=== PATIENT | female | born 1980 | race Caucasian/White ===

== ENCOUNTER 2018-01-14 12:19 | Inpatient (IN) | payer MEDICAID ==
[~2018-01-14] VITALS: Ht 167.6 cm; Wt 82.8 kg
[2018-01-14 14:15] VITALS: BP 137/93; PULSE 69; RESP 18; TEMP 98.3; O2SAT 99
[2018-01-14 18:44] VITALS: BP 140/92; PULSE 72; RESP 18; TEMP 97.6; O2SAT 98
[2018-01-15 06:08] VITALS: BP 128/86; PULSE 62; RESP 16; TEMP 97.7; O2SAT 100
[2018-01-15] MEDS ORDERED: FLUMAZENIL 0.5 MG/5 ML VIAL IV PUSH PRN (12:15)
[2018-01-15] MEDS ORDERED: LORazepam 2 MG/ML VIAL IM PRN (12:15)
[2018-01-15] MEDS ORDERED: ALUMINUM/MAGNESIUM/SIMETH 30 ML CUP PO PRN (12:15)
[2018-01-15] MEDS ORDERED: LORazepam 2 MG TAB PO PRN (12:15)
[2018-01-15] MEDS ORDERED: LORazepam 1 MG TAB PO PRN (12:15)
[2018-01-15] MEDS ORDERED: LORazepam 2 MG/ML VIAL IV PUSH PRN ×4 (12:15)
[2018-01-15] MEDS: LORazepam 1 MG TAB PO PRN ×2 (14:11→20:54)
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
[2018-01-15] MEDS ORDERED: LOSA100T PO (14:49)
--- NOTE | 2018-01-15 14:52 | PD.CONS ---
HPI Service [facility] Consult Requested By Dr. Renae Reason for Consult Hypertension Primary Care Physician Unknown Diagnoses: History of Present Illness Written by Kaur Guillen, acting as scribe for Dr. Chavez on 01/15/18 at 14:52. 37-year-old female with PMH significant for HTN, hemochromatosis, asthma, anxiety, depression, with past suicide attempt admitted to inpatient psychiatry department. Patient is under Pritchard act secondary to increase depression with suicidal ideation over the past several weeks. [facility] has been consulted to assist with management of hypertension. Patient is seen and examined after watching a movie and psych department. She denies any fevers, chills, nausea, vomiting, headache, shortness of breath, chest pain, eating and drinking without any issues. She does report some loose stools and thinks this might be related to her anxiety she reports a history of chronic constipation and has been unable to take Pepto-Bismol or any other medication secondary to history of hemochromatosis and severe constipation. She reports that her anxiety is ongoing and feels that the medications that she is receiving are not really helping. She reports that she is still very depressed especially given the fact that she has been unable to see her children and has been dealing with a lot of issues at home. One of those issues is her stepdaughter from her present who she states she is in the process of trying to evict from a trailer she owns. She is also very depressed because she has been unable to see her children who live with her [id number]. She is requesting medication to try and help with her anxiety. Review of Systems Except as stated in HPI: all other systems reviewed are Neg Past Family Social History Allergies: Coded Allergies: diphenhydramine (Verified Allergy, Intermediate, 01/14/18) MAKES HER HYPER topiramate (Verified Adverse Reaction, Severe, 01/14/18) Past Medical History Anxiety/depression Asthma Hypertension Hemochromatosis followed by (hematology) last seen in July and was told that her levels were stable. 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 Reported Medications Reported Meds & Active Scripts Active Reported Losartan (Losartan Potassium) 100 Mg Tab 100 Mg PO DAILY Active Ordered Medications Current Medications Medications (Trade) Dose Ordered Sig/Noemi Route Start Time Stop Time Status Last Admin (Tylenol) 650 mg Q4H PRN PO 01/14/18 21:30 (Ativan) 1 mg Q6H PRN PO 01/15/18 12:15 01/15/18 14:11 (Ativan Inj) 1 mg Q6H PRN IM 01/15/18 12:15 (Milk Of Magnesia Liq) 30 ml DAILY PRN PO 01/15/18 12:15 (Mag-Al Plus Susp Liq) 30 ml Q6H PRN PO 01/15/18 12:15 (Desyrel) 50 mg HS PRN PO 01/15/18 12:15 (Romazicon Inj) 0.2 mg Q1M PRN IV PUSH 01/15/18 12:15 (Ativan) 1 mg Q4H PRN PO 01/15/18 12:15 (Ativan Inj) 1 mg Q4H PRN IV PUSH 01/15/18 12:15 (Ativan) 2 mg Q2H PRN PO 01/15/18 12:15 (Ativan Inj) 2 mg Q2H PRN IV PUSH 01/15/18 12:15 (Ativan Inj) 2 mg Q1H PRN IV PUSH 01/15/18 12:15 (Ativan Inj) 2 mg Q15M PRN IV PUSH 01/15/18 12:15 Family History Adopted but does know some family history Father: [place] Mother: Diabetes Grandmother: at 47 from [place] also had aneurysm Grandfather: at 63 due to cancer Social History Tobacco use: 1.2 PPD for the past 2 years Alcohol use: Socially and when she is stressed Illicit drug use: Denies , 3 children Physical Exam Vital Signs Vital Signs Date Time Temp Pulse Resp B/P (MAP) Pulse Ox O2 Delivery O2 Flow Rate FiO2 01/15/18 06:08 97.7 62 16 128/86 (100) 100 01/14/18 18:44 97.6 72 18 140/92 (108) 98 Physical Exam GENERAL: This is a well-nourished, well-developed patient, in no acute distress but becomes tearful when talking about family situation. SKIN: No rashes, ecchymoses or lesions. Cool and dry. HEAD: Atraumatic. Normocephalic. EYES: Pupils equal round and reactive. No scleral icterus. No injection or drainage. ENT: Nose without bleeding, purulent drainage. Airway patent. NECK: Trachea midline. No JVD. Supple. CARDIOVASCULAR: Regular rate and rhythm without murmurs, gallops, or rubs. RESPIRATORY: Clear to auscultation. Breath sounds equal bilaterally. No wheezes , rales, or rhonchi. GASTROINTESTINAL: Abdomen soft, non-tender, nondistended. No guarding. MUSCULOSKELETAL: Extremities without clubbing, cyanosis, or edema. No joint tenderness, effusion, or edema noted. NEUROLOGICAL: Awake and alert. Cranial nerves II through XII intact. Motor and sensory grossly within normal limits. Five out of 5 muscle strength in all muscle groups. Normal speech. Assessment and Plan Assessment and Plan 37-year-old female with PMH significant for HTN, anxiety, depression, with past suicide attempt admitted to inpatient psychiatry department under Pritchard act secondary to increase depression with suicidal ideation over the past several weeks. [facility] has been consulted to assist with management of hypertension. Anxiety/depression - Treatment per psychiatry Hypertension - Resume patient's Losartan 100mg daily - Continue following BP trend and adjust meds as needed Asthma, not exacerbated -Breathing treatments as needed. Hemochromatosis - Check CBC DVT prophylaxis-ambulating. Discussed with nurse. Thank you for this consultation will continue to follow along. This note was transcribed by MAIKOL Lawrence . I, Dr. Chiquis Chavez personally performed the history, physical exam, and medical decision making; and confirmed the accuracy of the information in the transcribed note. Authenticated by Dr. Chiquis Chavez on 01/15/18 at 14:52. Kaur Guillen Jan 15, 2018 14:52 Chiquis Chavez MD Jan 15, 2018 17:59
[2018-01-15 16:45] VITALS: BP 138/88; PULSE 66; RESP 18; TEMP 98; O2SAT 100
[2018-01-15] MEDS ORDERED: RESP: ALBUTEROL 2.5 MG/IPRATROPIUM 0.5 MG NEB (PRN) NEB (16:45)
[2018-01-15 18:46] LABS: AUTOMATED NEUTROPHIL # 2.3 TH/MM3 (1.8-7.7); BASOPHIL % 0.4 % (0.0-2.0); EOSINOPHIL # 0.1 TH/MM3 (0-0.4); EOSINOPHIL % 2.1 % (0.0-4.0); HEMATOCRIT 38.5 % (35.0-46.0); HEMOGLOBIN 13.6 GM/DL (11.6-15.3); LYMPH % 35.7 % (9.0-44.0); LYMPHOCYTE # 1.5 TH/MM3 (1.0-4.8); MEAN CELL VOLUME 99.3 FL (80.0-100.0); MEAN CORPUSCULAR HGB CONC 35.3 % (32.0-36.0); MEAN PLATELET VOLUME 7.5 FL (7.0-11.0); MONO % 8.1 % (0.0-8.0); MONOCYTE # 0.3 TH/MM3 (0-0.9); NEUT % 53.7 % (16.0-70.0); PLATELET COUNT 174 TH/MM3 (150-450); RED BLOOD COUNT 3.87 MIL/MM3 (4.00-5.30); RED CELL DISTRIBUTION WIDTH 12.6 % (11.6-17.2); WHITE BLOOD COUNT 4.2 TH/MM3 (4.0-11.0)
[2018-01-15] MEDS: traZODone HCL 50 MG TAB PO PRN (20:54)
[2018-01-16] MEDS: LORazepam 1 MG TAB PO PRN ×3 (05:51→18:18)
[2018-01-16 05:59] VITALS: BP 109/88; PULSE 62; RESP 16; TEMP 97.6; O2SAT 99
[2018-01-16 08:40] LABS: BICARBONATE 26.8 MEQ/L (21.0-32.0); BLOOD UREA NITROGEN 7 MG/DL (7-18); CALCIUM 8.5 MG/DL (8.5-10.1); CHLORIDE 102 MEQ/L (98-107); CREATININE 0.49 MG/DL (0.50-1.00); GLOMERULAR FILTRATION RATE 141 ML/MIN (>89); GLUCOSE,RANDOM 93 MG/DL (74-106); SODIUM (NA) 137 MEQ/L (136-145)
[2018-01-16 08:42] LABS: CHOLESTEROL 254 MG/DL (120-200); TRIGLYCERIDES 216 MG/DL (42-150)
[2018-01-16 08:50] LABS: CHOLESTEROL/ HDL RATIO 4.05 RATIO; HDL CHOLESTEROL 62.6 MG/DL (40.0-60.0); LDL CHOLESTEROL 148 MG/DL (0-99)
[2018-01-16] MEDS: LOSARTAN 50 MG TAB PO SCH (09:00)
[2018-01-16 16:13] LABS: HEMOGLOBIN A1C 5.2 % (4.3-6.0)
--- NOTE | 2018-01-16 16:45 | HHI.PR ---
Subjective Remarks Patient seen and examined today. Complaints of vaginal discharge, "fishy smelling, foul", filmlike white colored discharge. Patient states she can smell it every time she goes to the bathroom and voids or whenever she takes off her pants states he was overwhelming her. Denies any current sexual encounter. States monogamous with . Reports that she had this before and was treated for bacterial infection. Denies any fevers, chills, nausea, vomiting, diarrhea. Objective Vitals Vital Signs Date Time Temp Pulse Resp B/P (MAP) Pulse Ox O2 Delivery O2 Flow Rate FiO2 01/16/18 05:59 97.6 62 16 109/88 (95) 99 I/O 01/15/18 01/15/18 01/15/18 01/16/18 01/16/18 01/16/18 07:00 15:00 23:00 07:00 15:00 23:00 Intake Total 240 ml Balance 240 ml Intake Oral 240 ml Result Diagram: 01/15/18 1624 01/16/18 0640 Objective Remarks GENERAL: This is a well-nourished, well-developed patient, in no apparent distress. SKIN: Warm and dry HEENT: Normocephalic. Pupils equal round and reactive. Nose without bleeding. Airway patent. NECK: Trachea midline. CARDIOVASCULAR: Regular rate and rhythm without murmurs, gallops, or rubs. RESPIRATORY: Clear to auscultation. Breath sounds equal bilaterally. No wheezes , rales, or rhonchi. GASTROINTESTINAL: Abdomen soft, non-tender, nondistended. Bowel Sounds normoactive x4. : Malodorous smell patient took off her pants. MUSCULOSKELETAL: Extremities without clubbing, cyanosis, or edema. NEUROLOGICAL: Awake and alert. Oriented to time, place, person. No focal neuro deficit. Moves all extremities. Normal speech. A/P Problem List: (1) Bacterial vaginosis ICD Code: N76.0 - Acute vaginitis; B96.89 - Other specified bacterial agents as the cause of diseases classified elsewhere Status: Acute (2) Adjustment disorder with depressed mood ICD Code: F43.21 - Adjustment disorder with depressed mood Assessment and Plan 37-year-old female with PMH significant for HTN, anxiety, depression, with past suicide attempt admitted to inpatient psychiatry department under Pritchard act secondary to increase depression with suicidal ideation over the past several weeks. [facility] has been consulted to assist with management of hypertension. Bacterial vaginosis - Start Flagyl 500 mg twice a day 7 days Anxiety/depression - Treatment per psychiatry Hypertension - Resume patient's Losartan 100mg daily - Continue following BP trend and adjust meds as needed Asthma, not exacerbated - Breathing treatments as needed. Hemochromatosis - Within normal CBC DVT prophylaxis-ambulating. Dirk Gerardo Jan 16, 2018 16:45
[2018-01-16 17:29] VITALS: BP 146/86; PULSE 66; RESP 16; TEMP 98; O2SAT 98
--- NOTE | 2018-01-16 17:38 | HHI.PYPN ---
Subjective Remarks Patient seen for follow-up, chart reviewed. Patient was found participating in group and they will not be, cooperative energy today. Patient states that she continues to depressed along with intermittent crying spells when thinking about her psychosocial stressors. Patient was attempting to go to groups which she feels has been therapeutic. Patient had some difficulty with sleep last evening along with ruminations over her stressors. Patient did not receive Zoloft yesterday as discussed with report writer. Patient denies any perceptual disturbances or delusions at this time. Review of Systems Genitourinary: COMPLAINS OF: Vaginal discharge Except as stated in HPI: all other systems reviewed are Neg Mental Status Examination Appearance: Dirty Consciousness: Alert Orientation: Person, Place, Date/Time Motor Activity: Normal gait Speech: Unremarkable Language: Adequate Fund of Knowledge: Inadequate Attention and Concentration: Adequate Memory: Unremarkable Mood: Sad, Anxious Affect: Sad, Anxious, Other (Tearful at times) Thought Process & Associations: Linear Thought Content: Appropriate Hallucination Type: None Delusion Type: None Suicidal Ideation: Yes Suicidal Plan: No Suicidal Intention: No Homicidal Ideation: No Homicidal Plan: No Homicidal Intention: No Insight: Fair Judgment: Impulsive Results Labs Labs reviewed Test 01/16/18 06:40 Blood Urea Nitrogen 7 MG/DL Creatinine 0.49 MG/DL Random Glucose 93 MG/DL Calcium Level 8.5 MG/DL Sodium Level 137 MEQ/L Potassium Level 3.7 MEQ/L Chloride Level 102 MEQ/L Carbon Dioxide Level 26.8 MEQ/L Anion Gap 8 MEQ/L Estimat Glomerular Filtration Rate 141 ML/MIN Triglycerides Level 216 MG/DL Cholesterol Level 254 MG/DL LDL Cholesterol 148 MG/DL HDL Cholesterol 62.6 MG/DL Cholesterol/HDL Ratio 4.05 RATIO Thyroid Stimulating Hormone 3rd Gen 2.670 uIU/ML Vitals/IOs Vital Signs Date Time Temp Pulse Resp B/P (MAP) Pulse Ox O2 Delivery O2 Flow Rate FiO2 01/16/18 17:29 98.0 66 16 146/86 (106) 98 Intake and Output 01/16/18 01/16/18 01/17/18 08:00 16:00 00:00 Intake Total 240 ml 240 ml Balance 240 ml 240 ml Assessment & Plan Problem List: (1) Adjustment disorder with depressed mood ICD Codes: F43.21 - Adjustment disorder with depressed mood Assessment & Plan Patient at this time continues to report feeling depressed along with intermittent suicidal ideations, continue with episodes of crying spells during moments when she calls her stressors. Patient did not receive her initial dose of Zoloft yesterday as there was entry there order system. Patient will commence Zoloft 50 mg p.o. daily for depression today, continue rest of medications. Continue monitoring mood and behavior. Brief supportive psychotherapy provided. I spoke with [employer] SALESPERSON from hospitalist consult team regarding recent complaints of vaginal discharge. Discharge planning in progress. Justification for Cont. Inpt. At risk for further decompensation at lower level of care Discharge Planning Neck to her residence once psychiatrically stable. Lv Malin MD Jan 16, 2018 17:38
[2018-01-16 18:06] LABS: ALBUMIN 3.6 GM/DL (3.4-5.0); DIRECT BILIRUBIN ADULT 0.2 MG/DL (0.0-0.2)
[2018-01-16 18:08] LABS: INDIRECT BILIRUBIN 0.1 MG/DL (0.0-0.8); TOTAL BILIRUBIN ADULT 0.3 MG/DL (0.2-1.0); TOTAL PROTEIN 7.1 GM/DL (6.4-8.2)
[2018-01-16] MEDS: SERTRALINE HCL 50 MG TAB PO SCH (18:18)
[2018-01-16] MEDS ORDERED: hydrOXYzine HCL 50 MG TAB PO PRN (20:45)
[2018-01-16] MEDS: metroNIDAZOLE 500 MG TAB PO SCH (21:09)
[2018-01-16] MEDS: traZODone HCL 50 MG TAB PO PRN (22:42)
[2018-01-17] MEDS: LORazepam 1 MG TAB PO PRN ×4 (00:15→22:54)
[2018-01-17 06:12] VITALS: BP 106/58; PULSE 65; RESP 16; TEMP 98.2; O2SAT 95
[2018-01-17] MEDS: ATORVASTATIN 10 MG TAB PO SCH (09:29)
[2018-01-17] MEDS: LOSARTAN 50 MG TAB PO SCH (09:30)
[2018-01-17] MEDS: SERTRALINE HCL 50 MG TAB PO SCH (09:30)
[2018-01-17] MEDS: metroNIDAZOLE 500 MG TAB PO SCH ×2 (09:30→22:11)
--- NOTE | 2018-01-17 12:28 | HHI.PYPN ---
Subjective Remarks Patient seen and examined with nurse in coverage for Dr. Malin. Chart reviewed. Case discussed with nursing staff. On my examination today, the patient complains of anxiety and difficulty sleeping. She says that her sleep is disrupted by anxious rumination. Mood remains depressed. She denies any suicidal or homicidal ideation. She denies side effects from Zoloft but is reluctant to use hydroxyzine as she notes that she has had a paradoxical response to Benadryl in the past. She does have Ativan as needed for anxiety. Review of Systems Except as stated in HPI: all other systems reviewed are Neg Mental Status Examination Appearance: Appropriate Consciousness: Alert Orientation: x4 Motor Activity: Normal gait, Other (no motor abnormalities noted) Speech: Unremarkable Language: Adequate Fund of Knowledge: Adequate Attention and Concentration: Adequate Memory: Unremarkable Mood: Anxious, Other (depressed) Affect: Other (consistent with stated mood) Thought Process & Associations: Intact, Logical, Goal directed Thought Content: Appropriate Hallucination Type: None Delusion Type: None Suicidal Ideation: No Suicidal Plan: No Suicidal Intention: No Homicidal Ideation: No Homicidal Plan: No Homicidal Intention: No Insight: Fair Judgment: Impulsive Results Labs Labs reviewed. I do not see a bHCG on file. Vitals/IOs Vital Signs Date Time Temp Pulse Resp B/P (MAP) Pulse Ox O2 Delivery O2 Flow Rate FiO2 01/17/18 06:12 98.2 65 16 106/58 (74) 95 Intake and Output 01/17/18 01/17/18 01/18/18 08:00 16:00 00:00 Intake Total 240 ml 240 ml Balance 240 ml 240 ml Assessment & Plan Problem List: (1) Adjustment disorder with depressed mood ICD Codes: F43.21 - Adjustment disorder with depressed mood Assessment & Plan Titrate trazodone to 100mg HS p.r.n. insomnia. Check bHCG. Hold Atarax and continue Ativan p.r.n.. Continue to monitor on inpatient unit. Continue other meds and care as ordered. Justification for Cont. Inpt. Med changes. Risk for decompensation in less restrictive environment. Discharge Planning Per Dr. Malin. Manfred Gutierrez MD Jan 17, 2018 12:28
[2018-01-17] MEDS: MAGNESIUM HYDROXIDE SUSP 30 ML CUP PO PRN (14:57)
[2018-01-17 18:00] VITALS: BP 147/83; PULSE 78; RESP 16; TEMP 97.8; O2SAT 98
[2018-01-17] MEDS: traZODone HCL 100 MG TAB PO PRN (22:56)
--- NOTE | 2018-01-18 01:34 | EKG ---
Date Performed: 01/16/2018 Time Performed: 13:20:16 PTAGE: 37 years EKG: Sinus rhythm POSSIBLE RIGHT VENTRICULAR CONDUCTION DELAY TALL T-WAVES, SUGGESTS HYPERKALEMIA PROLONGED QT INTERVA L ABNORMAL ECG NO PREVIOUS TRACING DOCTOR: Monalisa Young Interpretating Date/Time 01/18/2018 01:32:14
[2018-01-18] MEDS: ACETAMINOPHEN 325 MG TAB PO PRN (06:11)
[2018-01-18] MEDS: LOSARTAN 50 MG TAB PO SCH (09:06)
[2018-01-18] MEDS: SERTRALINE HCL 50 MG TAB PO SCH (09:06)
[2018-01-18] MEDS: metroNIDAZOLE 500 MG TAB PO SCH ×2 (09:06→20:11)
[2018-01-18] MEDS: MAGNESIUM HYDROXIDE SUSP 30 ML CUP PO PRN (09:07)
[2018-01-18] MEDS ORDERED: MAGNESIUM HYDROXIDE SUSP 30 ML CUP PO PRN (10:30)
[2018-01-18] MEDS ORDERED: BISACODYL 10 MG SUPP RECTAL PRN (10:30)
[2018-01-18] MEDS ORDERED: POLYETHYLENE GLYCOL 17 GM PKG PO ONE (10:30)
--- NOTE | 2018-01-18 10:31 | HHI.PR ---
Subjective Remarks Follow-up for bacterial vaginosis No vaginal discharge, fishy odor disappearing, no vaginal itchiness. However, patient has been constipated, no improvement with milk of magnesia. Mildly bloated, no abdominal pain, nausea or vomiting. Objective Vitals Vital Signs Date Time Temp Pulse Resp B/P (MAP) Pulse Ox O2 Delivery O2 Flow Rate FiO2 01/17/18 18:00 97.8 78 16 147/83 (104) 98 I/O 01/17/18 01/17/18 01/17/18 01/18/18 01/18/18 01/18/18 07:00 15:00 23:00 07:00 15:00 23:00 Intake Total 480 ml Balance 480 ml Intake Oral 480 ml Result Diagram: 01/15/18 1624 01/16/18 0640 Objective Remarks GENERAL: This is a well-nourished, well-developed patient, in no apparent distress. CARDIOVASCULAR: Regular rate and rhythm without murmurs, gallops, or rubs. RESPIRATORY: Clear to auscultation. Breath sounds equal bilaterally. No wheezes , rales, or rhonchi. GASTROINTESTINAL: Abdomen soft, non-tender, nondistended. Bowel Sounds normoactive x4. MUSCULOSKELETAL: Extremities without clubbing, cyanosis, or edema. NEUROLOGICAL: Awake and alert. Oriented to time, place, person. No focal neuro deficit. Moves all extremities. Normal speech. A/P Problem List: (1) Bacterial vaginosis ICD Code: N76.0 - Acute vaginitis; B96.89 - Other specified bacterial agents as the cause of diseases classified elsewhere Status: Acute (2) Adjustment disorder with depressed mood ICD Code: F43.21 - Adjustment disorder with depressed mood Assessment and Plan 37-year-old female with PMH significant for HTN, anxiety, depression, with past suicide attempt admitted to inpatient psychiatry department under [facility] secondary to increase depression with suicidal ideation over the past several weeks. [facility] has been consulted to assist with management of hypertension. Bacterial vaginosis -Finish Flagyl 500 mg twice a day 7 days on 01/23/2018 Anxiety/depression - Treatment per psychiatry Hypertension -Continue losartan 100mg daily, allegedly, patient is also on hydrochlorothiazide 25 mg daily and Norvasc 5 mg daily. Blood pressure uncontrolled, restart hydrochlorothiazide at 12.5 mg daily. - Continue following BP trend and adjust meds as needed Asthma, not exacerbated - Breathing treatments as needed. Hemochromatosis - Within normal CBC Constipation-we will put in constipation protocol, will give glycopyrrolate once now. DVT prophylaxis-ambulating. Yohannes Wilson MD Jan 18, 2018 10:31
[2018-01-18] MEDS: traZODone HCL 100 MG TAB PO PRN (10:47)
[2018-01-18] MEDS: HYDROCHLOROTHIAZIDE 12.5 MG CAP PO SCH (10:47)
[2018-01-18] MEDS: ATORVASTATIN 10 MG TAB PO SCH (10:52)
[2018-01-18] MEDS: LORazepam 1 MG TAB PO PRN ×2 (13:41→20:11)
--- NOTE | 2018-01-18 13:52 | HHI.PYPN ---
Subjective Remarks Patient was seen and case discussed with nursing. Patient continues to complain of insomnia 3-1/2 hours per night. She is crying in the mornings per nursing. She was close to tears during our interview. She is open to medication for anxiety is not controlled. We discussed gabapentin. Patient describes various stressors before admission. She does deny suicidal or homicidal ideation intent or plan. Behaving well on the unit Mental Status Examination Appearance: Appropriate Consciousness: Alert Orientation: x4 Motor Activity: Normal gait, Other (no motor abnormalities noted) Speech: Unremarkable Language: Adequate Fund of Knowledge: Adequate Attention and Concentration: Adequate Memory: Unremarkable Mood: Anxious, Other (depressed) Affect: Other (consistent with stated mood) Thought Process & Associations: Intact, Logical, Goal directed Thought Content: Appropriate Hallucination Type: None Delusion Type: None Suicidal Ideation: No Suicidal Plan: No Suicidal Intention: No Homicidal Ideation: No Homicidal Plan: No Homicidal Intention: No Insight: Fair Judgment: Impulsive Results Vitals/IOs Vital Signs Date Time Temp Pulse Resp B/P (MAP) Pulse Ox O2 Delivery O2 Flow Rate FiO2 01/18/18 07:15 12 01/17/18 18:00 97.8 78 147/83 (104) 98 Assessment & Plan Problem List: (1) Adjustment disorder with depressed mood ICD Codes: F43.21 - Adjustment disorder with depressed mood Assessment & Plan Add gabapentin 100 mg by mouth 3 times a day, increase trazodone to 150 mg by mouth daily at bedtime Justification for Cont. Inpt. Patient would decompensate in a less restrictive setting Nilesh Nettles DO Jan 18, 2018 13:52
[2018-01-18] MEDS: LACTULOSE SYRUP 20 GM/30 ML CUP PO PRN (15:49)
[2018-01-18] MEDS: GABAPENTIN 100 MG CAP PO SCH ×2 (15:49→17:57)
[2018-01-18] MEDS ORDERED: PADIMATE (CHAPSTICK) 4.5 GM TUBE TOPICAL PRN (17:30)
[2018-01-18 18:36] VITALS: BP 145/83; PULSE 75; RESP 18; TEMP 98.5; O2SAT 98
[2018-01-18] MEDS: DOCUSATE SODIUM 50 MG/SENNA 8.6 MG TAB PO SCH (20:11)
[2018-01-19 05:42] VITALS: BP 114/58; PULSE 70; RESP 16; TEMP 98; O2SAT 97
[2018-01-19] MEDS: LOSARTAN 50 MG TAB PO SCH (09:00)
[2018-01-19] MEDS: DOCUSATE SODIUM 50 MG/SENNA 8.6 MG TAB PO SCH ×2 (10:39→21:00)
[2018-01-19] MEDS: GABAPENTIN 100 MG CAP PO SCH ×2 (10:40→12:16)
[2018-01-19] MEDS: ATORVASTATIN 10 MG TAB PO SCH (10:40)
[2018-01-19] MEDS: SERTRALINE HCL 50 MG TAB PO SCH (10:40)
[2018-01-19] MEDS: HYDROCHLOROTHIAZIDE 12.5 MG CAP PO SCH (10:40)
[2018-01-19] MEDS: metroNIDAZOLE 500 MG TAB PO SCH ×2 (10:40→21:00)
[2018-01-19] MEDS: LACTULOSE SYRUP 20 GM/30 ML CUP PO PRN (10:41)
[2018-01-19] MEDS: ACETAMINOPHEN 325 MG TAB PO PRN (12:16)
--- NOTE | 2018-01-19 12:24 | HHI.PYPN ---
Subjective Remarks Patient was seen and case discussed with nursing. Patient is brighter more interactive during the interview today. However she admits to getting tearful and upset when talking about her kids. Her "panic attacks" have improved today with addition of gabapentin. She is asking about a higher dose. Patient also notices a pain in her right wrist for a week. She does not remember any trauma Mental Status Examination Appearance: Appropriate Consciousness: Alert Orientation: x4 Motor Activity: Normal gait, Other (no motor abnormalities noted) Speech: Unremarkable Language: Adequate Fund of Knowledge: Adequate Attention and Concentration: Adequate Memory: Unremarkable Mood: Anxious, Other (depressed) Affect: Other (consistent with stated mood) Thought Process & Associations: Intact, Logical, Goal directed Thought Content: Appropriate Hallucination Type: None Delusion Type: None Suicidal Ideation: No Suicidal Plan: No Suicidal Intention: No Homicidal Ideation: No Homicidal Plan: No Homicidal Intention: No Insight: Fair Judgment: Impulsive Results Vitals/IOs Vital Signs Date Time Temp Pulse Resp B/P (MAP) Pulse Ox O2 Delivery O2 Flow Rate FiO2 01/19/18 05:42 98.0 70 16 114/58 (76) 97 Intake and Output 01/19/18 01/19/18 01/20/18 08:00 16:00 00:00 Intake Total 240 ml Balance 240 ml Assessment & Plan Problem List: (1) Adjustment disorder with depressed mood ICD Codes: F43.21 - Adjustment disorder with depressed mood Assessment & Plan Add Motrin for pain, medical consult for this, increase gabapentin to 300 mg by mouth 3 times a day Justification for Cont. Inpt. Patient will decompensate in a less restrictive setting Nilesh Nettles DO Jan 19, 2018 12:24
[2018-01-19] MEDS: GABAPENTIN 300 MG CAP PO SCH ×2 (13:00→17:00)
--- NOTE | 2018-01-19 13:55 | HHI.PR ---
Subjective Remarks Follow-up visit bacterial vaginosis, constipation. Patient seen and examined today. Reports she is doing well. States that vaginosis has improved, has not noticed any discharge or odor. Patient complaints of constipation. States she went to the bathroom today but she thinks it it is not regular. States she has been drinking water but continues to have constipation. Patient also reports right wrist and forearm pain, aggravated by playing basketball. States she has the pain in prior months before coming to the hospital and knows that there is no fracture and it but she thinks it's a little bit swollen from playing basketball and laying on it overnight. Requesting for topical cream analgesia. Denies SOB/ dyspnea. Denies chest pain, palpitations, headaches, dizziness. Denies fevers, chills, n/v/d. Denies hematuria, dysuria. Objective Vitals Vital Signs Date Time Temp Pulse Resp B/P (MAP) Pulse Ox O2 Delivery O2 Flow Rate FiO2 01/19/18 05:42 98.0 70 16 114/58 (76) 97 01/18/18 18:36 98.5 75 18 145/83 (103) 98 I/O 01/18/18 01/18/18 01/18/18 01/19/18 01/19/18 01/19/18 07:00 15:00 23:00 07:00 15:00 23:00 Intake Total 240 ml 480 ml Balance 240 ml 480 ml Intake Oral 240 ml 480 ml Result Diagram: 01/15/18 1624 01/16/18 0640 Objective Remarks GENERAL: This is a well-nourished, well-developed patient, in no apparent distress. SKIN: Warm and dry HEENT: Normocephalic. Pupils equal round and reactive. Nose without bleeding. Airway patent. NECK: Trachea midline. CARDIOVASCULAR: Regular rate and rhythm without murmurs, gallops, or rubs. RESPIRATORY: Clear to auscultation. Breath sounds equal bilaterally. No wheezes , rales, or rhonchi. GASTROINTESTINAL: Abdomen soft, non-tender, nondistended. Bowel Sounds normoactive x4. MUSCULOSKELETAL: Extremities without clubbing, cyanosis, or edema. Right forearm trace edema, no erythema. NEUROLOGICAL: Awake and alert. Oriented to time, place, person. No focal neuro deficit. Moves all extremities. Normal speech. A/P Problem List: (1) Bacterial vaginosis ICD Code: N76.0 - Acute vaginitis; B96.89 - Other specified bacterial agents as the cause of diseases classified elsewhere Status: Acute (2) Adjustment disorder with depressed mood ICD Code: F43.21 - Adjustment disorder with depressed mood Assessment and Plan Patrient is a 37-year-old female with PMH significant for HTN, anxiety, depression, with past suicide attempt admitted to inpatient psychiatry department under [facility] secondary to increase depression with suicidal ideation over the past several weeks. [facility] has been consulted to assist with management of hypertension. Bacterial vaginosis - Flagyl 500 mg twice a day 7 days Anxiety/depression - Treatment per psychiatry Hypertension - Resume patient's Losartan 100mg daily - Continue following BP trend and adjust meds as needed Asthma, not exacerbated - Breathing treatments as needed. Hemochromatosis - Within normal CBC Constipation - MiraLAX and lactulose daily - DC lactulose and patient is having regular bowel movements Right forearm pain, sprain - Sprained forearm - Unable to use Richard wrap secondary to suicidal risk at the unit - [facility] as needed DVT prophylaxis-ambulating. Stable from Hospitalist standpoint. We will sign off. Reconsult as needed. Dirk Gerardo Jan 19, 2018 13:55
[2018-01-19 18:56] VITALS: BP 165/83; PULSE 76; RESP 16; TEMP 98.3; O2SAT 96
[2018-01-19] MEDS: LORazepam 1 MG TAB PO PRN (21:31)
[2018-01-19] MEDS: MENTHOL/METHYL SALICYLATE OINT 30 GM TUBE TOPICAL PRN (21:36)
[2018-01-20] MEDS: traZODone HCL 50 MG TAB PO PRN (00:01)
[2018-01-20 05:47] VITALS: BP 120/62; PULSE 72; RESP 16; TEMP 98; O2SAT 97
[2018-01-20] MEDS: metroNIDAZOLE 500 MG TAB PO SCH ×2 (09:00→21:48)
[2018-01-20] MEDS: DOCUSATE SODIUM 50 MG/SENNA 8.6 MG TAB PO SCH ×2 (09:00→21:48)
[2018-01-20] MEDS: ATORVASTATIN 10 MG TAB PO SCH (09:00)
[2018-01-20] MEDS: SERTRALINE HCL 50 MG TAB PO SCH (09:00)
[2018-01-20] MEDS: GABAPENTIN 300 MG CAP PO SCH ×3 (09:00→17:57)
[2018-01-20] MEDS: HYDROCHLOROTHIAZIDE 12.5 MG CAP PO SCH (09:00)
[2018-01-20] MEDS: LOSARTAN 50 MG TAB PO SCH (09:00)
[2018-01-20] MEDS: POLYETHYLENE GLYCOL 17 GM PKG PO SCH ×2 (09:00→12:02)
[2018-01-20] MEDS: LACTULOSE SYRUP 20 GM/30 ML CUP PO SCH (09:00)
--- NOTE | 2018-01-20 11:46 | PD.TTN ---
Patient Problems 1. Discharge planning 2. Medication compliance 3. Knowledge deficit 4. Lack of coping skills Progress Toward Goals Provider Present: Dr. Jacob Malin Provider Input: 01/19/19 patient has been very tearful and depressed asking to be better before going home, will assess how her weekend has faired Psychiatric Counselors Present: Shwetha Taylor LCSW Psych Therapist Input: 01/19/19Saturday patient engaged well and participated in groups and appeared with better/improved affect, she will return home to her family once stable Group Spec/RT/OT/MUNOZ Present: Kashmir Bermudez OT Group Spec/RT/OT/MUNOZ Input: 01/19/19 patient attends groups and is appropriate Shwetha Taylor LCSW Jan 20, 2018 11:46
[2018-01-20] MEDS: MENTHOL/METHYL SALICYLATE OINT 30 GM TUBE TOPICAL PRN ×2 (12:02→21:56)
[2018-01-20 18:11] VITALS: BP 123/61; PULSE 76; RESP 16; TEMP 98.5; O2SAT 98
--- NOTE | 2018-01-20 18:43 | HHI.PYPN ---
Subjective Remarks Patient seen for follow-up, chart reviewed. Discussion nursing staff reported the patient continued to be noted to be tearful at times, and attending groups. Patient was found in the room notably, cooperative today. Patient reports that she is having less anxiety with the addition of gabapentin in her regimen but continues to report feeling depressed stating that he still 8 or 9 out of 10 (10 being its worst) continue to be noted to be tearful throughout the interview when addressing her stressors at home. She states that she is sleeping somewhat better and continues to look forward to improvement so that she can return back to her family. Patient reports trying to attend groups while on the unit as well. Patient denies any suicide ideation at this time reports continuing to have intermittent SI. Review of Systems Except as stated in HPI: all other systems reviewed are Neg Mental Status Examination Appearance: Appropriate Consciousness: Alert Orientation: x4 Motor Activity: Normal gait, Other (no motor abnormalities noted) Speech: Unremarkable Language: Adequate Fund of Knowledge: Adequate Attention and Concentration: Adequate Memory: Unremarkable Mood: Sad, Anxious, Other (Tearful at times) Affect: Sad, Anxious Thought Process & Associations: Intact, Logical, Goal directed Thought Content: Appropriate Hallucination Type: None Delusion Type: None Suicidal Ideation: No Suicidal Plan: No Suicidal Intention: No Homicidal Ideation: No Homicidal Plan: No Homicidal Intention: No Insight: Fair Judgment: Impulsive Results Vitals/IOs Vital Signs Date Time Temp Pulse Resp B/P (MAP) Pulse Ox O2 Delivery O2 Flow Rate FiO2 01/20/18 18:11 98.5 76 16 123/61 (81) 98 Intake and Output 01/20/18 01/20/18 01/21/18 08:00 16:00 00:00 Intake Total 240 ml Balance 240 ml Assessment & Plan Problem List: (1) Adjustment disorder with depressed mood ICD Codes: F43.21 - Adjustment disorder with depressed mood Assessment & Plan Patient at the time continues to report having significant depressed mood, continue be noted to be dysphoric and tearful throughout interview when speaking about her stressors concerning her family along with intermittent suicide ideations. We will increase sertraline to 100 mg p.o. daily for depression, continue rest of medications. Continue to monitor mood and behavior. Discharge planning in progress. Justification for Cont. Inpt. At risk for further decompensation at lower level of care. Discharge Planning Patient to return back to her residence once psychiatrically stable. Lv Malin MD Jan 20, 2018 18:43
[2018-01-20] MEDS: ACETAMINOPHEN 325 MG TAB PO PRN (20:23)
[2018-01-20] MEDS: SENNOSIDES 8.6 MG TAB PO PRN (21:56)
[2018-01-20] MEDS: LORazepam 1 MG TAB PO PRN (21:56)
[2018-01-21] MEDS: traZODone HCL 50 MG TAB PO PRN ×2 (00:09→22:00)
[2018-01-21 08:00] VITALS: BP 125/66; PULSE 84; RESP 17; TEMP 97.8; O2SAT 96
[2018-01-21] MEDS: GABAPENTIN 300 MG CAP PO SCH ×3 (09:45→12:09)
[2018-01-21] MEDS: metroNIDAZOLE 500 MG TAB PO SCH ×2 (10:07→22:00)
[2018-01-21] MEDS: SERTRALINE HCL 100 MG TAB PO SCH (10:07)
[2018-01-21] MEDS: HYDROCHLOROTHIAZIDE 12.5 MG CAP PO SCH (10:07)
[2018-01-21] MEDS: LACTULOSE SYRUP 20 GM/30 ML CUP PO SCH (10:07)
[2018-01-21] MEDS: ATORVASTATIN 10 MG TAB PO SCH (10:08)
[2018-01-21] MEDS: POLYETHYLENE GLYCOL 17 GM PKG PO SCH (10:08)
[2018-01-21] MEDS: LOSARTAN 50 MG TAB PO SCH (10:08)
[2018-01-21] MEDS: DOCUSATE SODIUM 50 MG/SENNA 8.6 MG TAB PO SCH ×2 (10:08→22:00)
[2018-01-21] MEDS: DOCUSATE SODIUM 100 MG CAP PO SCH ×2 (14:27→21:59)
[2018-01-21] MEDS: busPIRone HCL 5 MG TAB PO SCH ×2 (14:27→22:00)
--- NOTE | 2018-01-21 17:02 | HHI.PYPN ---
Subjective Remarks Patient seen for follow-up, chart reviewed. Discussion nursing staff reported patient has been compliant with treatment but was reporting having some intolerability to the gabapentin reporting dizziness and headaches. Patient was found in the room noted, cooperative. Patient states that she continues to have some dizziness and headache with gabapentin and would like to discontinue as she is having side effects. She continues report having anxiety per report sleeping much better and her mood has been improving although continues to have depressed mood but is lessening. Patient continues to have intermittent suicide ideations. Review of Systems Except as stated in HPI: all other systems reviewed are Neg Mental Status Examination Appearance: Appropriate Consciousness: Alert Orientation: x4 Motor Activity: Normal gait, Other (no motor abnormalities noted) Speech: Unremarkable Language: Adequate Fund of Knowledge: Adequate Attention and Concentration: Adequate Memory: Unremarkable Mood: Sad, Anxious Affect: Anxious Thought Process & Associations: Intact, Logical, Goal directed Thought Content: Appropriate Hallucination Type: None Delusion Type: None Suicidal Ideation: Yes (Intermittently) Suicidal Plan: No Suicidal Intention: No Homicidal Ideation: No Homicidal Plan: No Homicidal Intention: No Insight: Fair Judgment: Impulsive Results Vitals/IOs Vital Signs Date Time Temp Pulse Resp B/P (MAP) Pulse Ox O2 Delivery O2 Flow Rate FiO2 01/21/18 08:00 97.8 84 17 125/66 (85) 96 Intake and Output 01/21/18 01/21/18 01/22/18 08:00 16:00 00:00 Intake Total 240 ml 240 ml Balance 240 ml 240 ml Assessment & Plan Problem List: (1) Adjustment disorder with depressed mood ICD Codes: F43.21 - Adjustment disorder with depressed mood Assessment & Plan Patient at this time continues to report notable amount of anxiety along with depression but states that is improving. Patient tolerated gabapentin will therefore be discontinued. We will start BuSpar 5 mg p.o. 3 times daily for anxiety, continue sertraline 100 mg p.o. daily for depression, continue rest of medications. Continue to monitor mood and behavior. Discharge planning in progress Justification for Cont. Inpt. At risk for further decompensation if at lower level of care Discharge Planning Back to her residence once psychiatrically stable. Lv Malin MD Jan 21, 2018 17:02
[2018-01-21 18:07] VITALS: BP 144/80; PULSE 76; RESP 18; TEMP 98.1; O2SAT 98
[2018-01-21] MEDS: LORazepam 1 MG TAB PO PRN (21:59)
[2018-01-22 06:25] VITALS: BP 131/59; PULSE 77; RESP 16; TEMP 97.7; O2SAT 98
[2018-01-22] MEDS: LORazepam 1 MG TAB PO PRN ×2 (06:35→20:42)
[2018-01-22] MEDS: busPIRone HCL 5 MG TAB PO SCH ×3 (06:36→22:00)
[2018-01-22] MEDS: LACTULOSE SYRUP 20 GM/30 ML CUP PO SCH ×2 (09:13→09:16)
[2018-01-22] MEDS: POLYETHYLENE GLYCOL 17 GM PKG PO SCH (09:13)
[2018-01-22] MEDS: SERTRALINE HCL 100 MG TAB PO SCH (09:16)
[2018-01-22] MEDS: LOSARTAN 50 MG TAB PO SCH (09:18)
[2018-01-22] MEDS: metroNIDAZOLE 500 MG TAB PO SCH ×2 (09:18→20:39)
[2018-01-22] MEDS: DOCUSATE SODIUM 50 MG/SENNA 8.6 MG TAB PO SCH ×2 (09:18→20:39)
[2018-01-22] MEDS: ATORVASTATIN 10 MG TAB PO SCH (09:19)
[2018-01-22] MEDS: HYDROCHLOROTHIAZIDE 12.5 MG CAP PO SCH (09:19)
[2018-01-22] MEDS: DOCUSATE SODIUM 100 MG CAP PO SCH ×2 (09:19→20:39)
[2018-01-22 09:49] VITALS: BP 131/71
[2018-01-22] MEDS: ACETAMINOPHEN 325 MG TAB PO PRN (10:31)
--- NOTE | 2018-01-22 17:03 | HHI.PYPN ---
Subjective Remarks Patient seen for follow-up, chart reviewed. Discussion nursing staff reported patient tolerated BuSpar well, denying any suicidal ideation but was noted to wake up anxious depressed and crying. Patient was found in the room B, cooperative but noted to be tearful throughout interview today. Patient states that she had difficulty interacting with a peer which she was felt being bothered by this other person states that the other patient apologize later. Patient mentions having been more anxious during this encounter but felt better today. She continues to report feeling depressed and continues to have some intermittent suicide ideations but states that it is getting better. She mentions having visited by her mother and her son which went well yesterday. She denies any suicidal ideations at this time. Review of Systems Except as stated in HPI: all other systems reviewed are Neg Mental Status Examination Appearance: Appropriate Consciousness: Alert Orientation: x4 Motor Activity: Normal gait, Other (no motor abnormalities noted) Speech: Unremarkable Language: Adequate Fund of Knowledge: Adequate Attention and Concentration: Adequate Memory: Unremarkable Mood: Sad, Anxious Affect: Anxious, Other (Tearful at times) Thought Process & Associations: Intact, Logical, Goal directed Thought Content: Appropriate Hallucination Type: None Delusion Type: None Suicidal Ideation: Yes (Intermittently) Suicidal Plan: No Suicidal Intention: No Homicidal Ideation: No Homicidal Plan: No Homicidal Intention: No Insight: Fair Judgment: Impulsive Results Vitals/IOs Vital Signs Date Time Temp Pulse Resp B/P (MAP) Pulse Ox O2 Delivery O2 Flow Rate FiO2 01/22/18 09:49 131/71 (91) 01/22/18 06:25 97.7 77 16 98 Assessment & Plan Problem List: (1) Adjustment disorder with depressed mood ICD Codes: F43.21 - Adjustment disorder with depressed mood Assessment & Plan Patient this time continues to endorse depressed mood but is improving, denying any suicide ideations today. Patient appears to be tolerating BuSpar well as a continues to request occasional as needed Ativan. Continue current treatment. Continue to monitor behavior. Discharge planning in progress. Justification for Cont. Inpt. At risk for further decompensation at lower level of care Discharge Planning Return back to her residence when psychiatrically stable. Lv Malin MD Jan 22, 2018 17:03
[2018-01-22 18:00] VITALS: BP 129/79; PULSE 67; RESP 17; TEMP 98; O2SAT 96
[2018-01-22] MEDS: SENNOSIDES 8.6 MG TAB PO PRN (20:43)
[2018-01-22] MEDS: traZODone HCL 50 MG TAB PO PRN (22:35)
[2018-01-23 06:04] VITALS: BP 112/65; PULSE 68; RESP 16; TEMP 98.1; O2SAT 96
[2018-01-23] MEDS: DOCUSATE SODIUM 50 MG/SENNA 8.6 MG TAB PO SCH (08:18)
[2018-01-23] MEDS: metroNIDAZOLE 500 MG TAB PO SCH (08:18)
[2018-01-23] MEDS: HYDROCHLOROTHIAZIDE 12.5 MG CAP PO SCH (08:18)
[2018-01-23] MEDS: ATORVASTATIN 10 MG TAB PO SCH (08:19)
[2018-01-23] MEDS: SERTRALINE HCL 100 MG TAB PO SCH (08:19)
[2018-01-23] MEDS: LORazepam 1 MG TAB PO PRN ×2 (08:19→14:07)
[2018-01-23] MEDS: LOSARTAN 50 MG TAB PO SCH (08:19)
[2018-01-23] MEDS: DOCUSATE SODIUM 100 MG CAP PO SCH (08:19)
[2018-01-23] MEDS ORDERED: LIPI10TA PO (13:12)
[2018-01-23] MEDS ORDERED: LOSA100T PO (13:12)
[2018-01-23] MEDS ORDERED: TRAZ1TAB14 PO (13:12)
[2018-01-23] MEDS ORDERED: ZOLO100T PO (13:12)
[2018-01-23] MEDS ORDERED: HYDR12.57 PO (13:12)
[2018-01-23] MEDS ORDERED: METR-1 PO (13:12)
[2018-01-23] MEDS ORDERED: BUSP5TAB PO (13:12)
[2018-01-23] MEDS ORDERED: DOCU1CAP39 PO (13:12)
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
[2018-01-23] MEDS: busPIRone HCL 5 MG TAB PO SCH (14:00)
== END 2018-01-23 15:15 | disposition home or self-care (01) | DRG 882 ==
LOC: H260 14:17
PROVIDERS: ADMIT Student in an Organized Health Care Education/Training Program; ATTEND Student in an Organized Health Care Education/Training Program
DX: F43.23 Adjustment disorder with mixed anxiety and depressed mood (principal); R45.851 Suicidal ideations; I10 Essential (primary) hypertension; E83.119 Hemochromatosis, unspecified; K59.09 Other constipation; J45.909 Unspecified asthma, uncomplicated; N76.0 Acute vaginitis; G47.00 Insomnia, unspecified; S63.501A Unspecified sprain of right wrist, initial encounter; F41.0 Panic disorder [episodic paroxysmal anxiety]; Z72.0 Tobacco use; Z91.5 Personal history of self-harm
CPT/HCPCS: 80048; 80061; 80076; 83036; 84443; 84703; 85025; 93005

== ENCOUNTER 2018-03-09 16:06 | Emergency (ER) | payer SELFPAY ==
[~2018-03-09] VITALS: Ht 162.6 cm; Wt 60.0 kg
[~2018-03-09 16:06] MED LIST: BUSP5TAB PO; DOCU1CAP39 PO; HYDR12.57 PO; LIPI10TA PO; LOSA100T PO; METR-1 PO; TRAZ1TAB14 PO; ZOLO100T PO
[2018-03-09] MEDS ORDERED: SODIUM CHLOR 0.9% 1000 ML INJ 1,000 ML IV ONE (17:20)
[2018-03-09 17:24] VITALS: BP 115/79; PULSE 75; RESP 17; TEMP 97.8; O2SAT 99
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
[2018-03-09 17:41] LABS: AUTOMATED NEUTROPHIL # 1.4 TH/MM3 (1.8-7.7); BASOPHIL % 0.6 % (0.0-2.0); EOSINOPHIL # 0.1 TH/MM3 (0-0.4); EOSINOPHIL % 1.8 % (0.0-4.0); HEMATOCRIT 41.5 % (35.0-46.0); HEMOGLOBIN 14.1 GM/DL (11.6-15.3); LYMPH % 49.7 % (9.0-44.0); LYMPHOCYTE # 1.6 TH/MM3 (1.0-4.8); MEAN CELL VOLUME 97.1 FL (80.0-100.0); MEAN PLATELET VOLUME 7.9 FL (7.0-11.0); MONO % 6.1 % (0.0-8.0); MONOCYTE # 0.2 TH/MM3 (0-0.9); NEUT % 41.8 % (16.0-70.0); PLATELET COUNT 225 TH/MM3 (150-450); RED BLOOD COUNT 4.27 MIL/MM3 (4.00-5.30); RED CELL DISTRIBUTION WIDTH 13.1 % (11.6-17.2); WHITE BLOOD COUNT 3.2 TH/MM3 (4.0-11.0)
[2018-03-09 17:45] VITALS: O2SAT 99
[2018-03-09 17:51] LABS: ALBUMIN 4.3 GM/DL (3.4-5.0); ALT (GPT) 52 U/L (10-53); AST (GOT) 93 U/L (15-37); BICARBONATE 26.8 MEQ/L (21.0-32.0); BLOOD UREA NITROGEN 10 MG/DL (7-18); CALCIUM 8.3 MG/DL (8.5-10.1); CHLORIDE 111 MEQ/L (98-107); CREATININE 0.68 MG/DL (0.50-1.00); GLOMERULAR FILTRATION RATE 96 ML/MIN (>89); GLUCOSE,RANDOM 89 MG/DL (74-106); SODIUM (NA) 145 MEQ/L (136-145)
[2018-03-09 18:01] LABS: ALKALINE PHOSPHATASE 59 U/L (45-117); TOTAL BILIRUBIN ADULT 0.4 MG/DL (0.2-1.0); TOTAL PROTEIN 8.1 GM/DL (6.4-8.2)
[2018-03-09 18:51] LABS: ACETAMINOPHEN LESS THAN 2.0 MCG/ML (10.0-30.0)
[2018-03-09 19:15] VITALS: BP 123/77; PULSE 79; RESP 16; O2SAT 97
[2018-03-09 22:30] LABS: ALBUMIN 3.7 GM/DL (3.4-5.0); DIRECT BILIRUBIN ADULT 0.1 MG/DL (0.0-0.2)
[2018-03-09 22:33] LABS: INDIRECT BILIRUBIN 0.2 MG/DL (0.0-0.8); TOTAL BILIRUBIN ADULT 0.3 MG/DL (0.2-1.0); TOTAL PROTEIN 6.9 GM/DL (6.4-8.2)
[2018-03-10 00:31] VITALS: BP 134/83; PULSE 73; RESP 22; TEMP 98.2; O2SAT 97
[2018-03-10 04:53] VITALS: BP 150/96; PULSE 80; RESP 18; TEMP 98.5; O2SAT 97
--- NOTE | 2018-03-10 12:44 | PD ---
History of Present Illness Chief Complaint: Psychiatric Symptoms Time Seen by Provider: 12:15 Travel History International Travel<30 Days: No Contact w/Intl Traveler<30days: No Known affected area: No Legal Status Legal Status: Pritchard Act Pritchard Act Signed By: Ирина Meza History of Present Illness: History of Present Illness HPI 37-year-old, , female, with history of depression, anxiety, alcohol use disorder who presents the ED under Pritchard act initiated by law enforcement for psychiatric evaluation. According to the Pritchard act the patient wants to and encouraged the responding officer to shoot her. On presentation the patient endorses feeling hopeless and states "I feel as if the world would be better off without me." She admits to taking "a handful of Vernon and trazodone" some time this afternoon. She also admits to drinking 1 beer and 1 shot of alcohol sometime this morning. Her blood alcohol level on arrival to the ED was 291 and her toxicology positive for cannabinoids. Patient reporting stressors including receiving some messages from her ex- this weekend in which he was telling her that he was not going to continue to provide child support. She also states that it was her son's birthday and she was not able to have communication with him. The patient was monitor and secure environment and presented no further suicidality. Electronic medical record is reviewed. The patient has a previous admission to [facility] on January 14. At that time she was admitted under a Pritchard act for suicidal ideation. The patient is seen this morning in pod. She is clinically sober. She is alert and oriented, engaging and cooperative. Her speech is clear, logical, goal directed. Her mood is depressed and anxious. There is no hallucinations, no delusions, no matthias. She denies suicidal or homicidal ideation, intent or plan. She states that she loves her children and is quite concerned over her youngest son who is at home with her mother. The patient denies that she has been drinking on a daily basis and that she only drank yesterday as an isolated incident. The patient also states that she does not have any medication because she was unable to refill her prescription when she was discharged from [facility] due to not having insurance. The patient wants to be able to get back on her medication because she states that when she had the medicine it helped her manage her stressors. The patient continues to report episodes of insomnia. PFSH Past Medical History Anxiety: Yes Depression: Yes Cancer: No Cardiovascular Problems: No Diabetes: No Endocrine: No Genitourinary: No Headaches: Yes (migraines) Hypertension: Yes Immune Disorder: No Musculoskeletal: No Neurologic: No Psychiatric: Yes Reproductive: Yes (Cryo for HPV) Respiratory: No Seizures: No ?: Not : 6 Para: 4 Miscarriage: 1 : 1 Past Surgical History Body Medical Devices: IUD Other Surgery: No Psychiatric History Psychiatric History Hx Psychiatric Treatment: HX OF DEPRESSION AND ANXIETY. WAS ADMITTED TO [facility] JAN FROM [facility]. One previous suicide attempt in 2014. No history of self-injurious behavior History of Inpatient Treatment: Yes Guns or firearms in home: No Social History Patient is . She lives with her and her 3 children. She moved to the area 4 years ago. She is currently unemployed. Hx Alcohol Use: Yes Hx Tobacco Use: No Hx Substance Use: Yes Substance Use Type: Alcohol Other Substances Used: Patient denies daily use of alcohol Hx of Substance Use Treatment: No Family Psychiatric History Negative Allergies-Medications (Allergen,Severity, Reaction): Coded Allergies: diphenhydramine (Verified Allergy, Intermediate, 01/14/18) MAKES HER HYPER topiramate (Verified Adverse Reaction, Severe, 01/14/18) Reported Meds & Prescriptions Reported Meds & Active Scripts Active Losartan (Losartan Potassium) 100 Mg Tab 100 Mg PO DAILY 30 Days Review of Systems Psychiatric: COMPLAINS OF: Anxiety, Depression Except as stated in HPI: all other systems reviewed are Neg Mental Status Examination Appearance: Appropriate (In hospital [facility].) Consciousness: Alert Orientation: x4 Motor Activity: Normal gait Speech: Unremarkable Language: Adequate Fund of Knowledge: Adequate Attention and Concentration: Adequate Memory: Unremarkable Mood: Appropriate Affect: Appropriate Thought Process & Associations: Intact, Logical, Goal directed Thought Content: Appropriate Hallucination Type: None Delusion Type: None Suicidal Ideation: No Suicidal Plan: No Suicidal Intention: No Homicidal Ideation: No Homicidal Plan: No Homicidal Intention: No Insight: Fair Judgment: Adequate [facility] Medical Decision Making Medical Record Reviewed: Yes Assessment/Plan History of Present Illness HPI 37-year-old female known to [facility] psychiatry Department with recent admission to our psychiatric unit in January 2018. She presents under a Pritchard act for alleging to have reported that she wanted to and encourage the responding officer to shoot her. It is also alleged that she took a handful of Vernon and trazodone earlier in the afternoon. Patient was intoxicated at the time the Pritchard act was initiated with a blood alcohol level of 291. The patient was allowed to sober up clinically and monitored environment and presented no behavioral concerns and no suicidality. Once clinically sober the patient denies suicidal or homicidal ideation, intent or plan. She does admit that she has been off her medications due to not having insurance so she was unable to get a refill from her PCP. She wants to start the medication back again. She is going to be referred to [facility]. The patient is cognitively intact. She is advised against continued use of alcohol and abstinence is recommended. She is provided support and psychoeducation. The patient is future oriented. Has good support from her as well as from her mother. At this time she does not meet Pritchard act criteria and it will be lifted. Psychiatrically clear for discharge from the ED Orders Orders Complete Blood Count With Diff (03/09/18 16:49) Comprehensive Metabolic Panel (03/09/18 16:49) Thyroid Stimulating Hormone (03/09/18 16:49) Psych Screen (03/09/18 16:49) Drug Screen, Random Urine (03/09/18 16:49) Alcohol (Ethanol) (03/09/18 16:49) Salicylates (Aspirin) (03/09/18 17:09) Electrocardiogram (03/09/18 17:20) Iv Access Insert/Monitor (03/09/18 17:20) Ecg Monitoring (03/09/18 17:20) Oximetry (03/09/18 17:20) Sodium Chlor 0.9% 1000 Ml Inj (Ns 1000 M (03/09/18 17:20) Call Poison Control (03/09/18 17:20) Tylenol (Acetaminophen) (03/09/18 16:30) Hepatic Functional Panel (03/09/18 21:33) Diet Regular Basic (03/10/18 Breakfast) Diet Regular Basic (03/10/18 Lunch) Results Vital Signs Date Time Temp Pulse Resp B/P (MAP) Pulse Ox O2 Delivery O2 Flow Rate FiO2 03/10/18 04:53 98.5 80 18 150/96 (114) 97 Room Air 03/10/18 00:31 98.2 73 22 134/83 (100) 97 Room Air 03/09/18 19:15 79 16 123/77 (92) 97 Room Air 03/09/18 17:45 99 Room Air 03/09/18 17:24 97.8 75 17 115/79 (91) 99 Laboratory Tests Test 03/09/18 16:30 03/09/18 17:00 03/09/18 21:55 White Blood Count 3.2 Red Blood Count 4.27 Hemoglobin 14.1 Hematocrit 41.5 Mean Corpuscular Volume 97.1 Mean Corpuscular Hemoglobin 33.0 Mean Corpuscular Hemoglobin Concent 34.0 Red Cell Distribution Width 13.1 Platelet Count 225 Mean Platelet Volume 7.9 Neutrophils (%) (Auto) 41.8 Lymphocytes (%) (Auto) 49.7 Monocytes (%) (Auto) 6.1 Eosinophils (%) (Auto) 1.8 Basophils (%) (Auto) 0.6 Neutrophils # (Auto) 1.4 Lymphocytes # (Auto) 1.6 Monocytes # (Auto) 0.2 Eosinophils # (Auto) 0.1 Basophils # (Auto) 0.0 CBC Comment DIFF FINAL Differential Comment Blood Urea Nitrogen 10 Creatinine 0.68 Random Glucose 89 Total Protein 8.1 6.9 Albumin 4.3 3.7 Calcium Level 8.3 Alkaline Phosphatase 59 52 Aspartate Amino Transf (AST/SGOT) 93 71 Alanine Aminotransferase (ALT/SGPT) 52 44 Total Bilirubin 0.4 0.3 Sodium Level 145 Potassium Level 3.8 Chloride Level 111 Carbon Dioxide Level 26.8 Anion Gap 7 Estimat Glomerular Filtration Rate 96 Thyroid Stimulating Hormone 3rd Gen 0.360 Salicylates Level LESS THAN 1.7 Acetaminophen Level LESS THAN 2.0 Ethyl Alcohol Level 291 Urine Opiates Screen NEG Urine Barbiturates Screen NEG Urine Amphetamines Screen NEG Urine Benzodiazepines Screen NEG Urine Cocaine Screen NEG Urine Cannabinoids Screen POS Direct Bilirubin 0.1 Indirect Bilirubin 0.2 Diagnosis Primary Impression: Adjustment disorder with depressed mood Additional Impressions: Intentional overdose of drug in tablet form Alcohol abuse Psychiatrically Cleared: Yes Med/ Other Pt Specific Info: Prescription(s) given Prescriptions Trazodone (Trazodone) 100 Mg Tablet 100 MG PO HS for Control Depression, #30 TAB 0 Refills Prov: Barb Mora 03/10/18 Sertraline (Zoloft) 50 Mg Tab 50 MG PO DAILY for Anxiety for 30 Days, #30 TAB 0 Refills Prov: Barb Mora 03/10/18 Disposition: 01 DISCHARGE HOME Condition: Stable Problem Qualifiers Barb Mora Mar 10, 2018 12:44
[2018-03-10] MEDS ORDERED: ZOLO50TA PO (12:45)
[2018-03-10] MEDS ORDERED: TRAZ100T10 PO (12:46)
--- NOTE | 2018-03-10 13:49 | PD ---
Physical Exam Date Seen by Provider: Mar 10, 2018 Narrative For full history and physical examination please see previous providers note. Data Data Last Documented VS Vital Signs Date Time Temp Pulse Resp B/P (MAP) Pulse Ox O2 Delivery O2 Flow Rate FiO2 03/10/18 04:53 98.5 80 18 150/96 (114) 97 Room Air Orders Orders Complete Blood Count With Diff (03/09/18 16:49) Comprehensive Metabolic Panel (03/09/18 16:49) Thyroid Stimulating Hormone (03/09/18 16:49) Psych Screen (03/09/18 16:49) Drug Screen, Random Urine (03/09/18 16:49) Alcohol (Ethanol) (03/09/18 16:49) Salicylates (Aspirin) (03/09/18 17:09) Electrocardiogram (03/09/18 17:20) Iv Access Insert/Monitor (03/09/18 17:20) Ecg Monitoring (03/09/18 17:20) Oximetry (03/09/18 17:20) Sodium Chlor 0.9% 1000 Ml Inj (Ns 1000 M (03/09/18 17:20) Call Poison Control (03/09/18 17:20) Tylenol (Acetaminophen) (03/09/18 16:30) Hepatic Functional Panel (03/09/18 21:33) Diet Regular Basic (03/10/18 Breakfast) Diet Regular Basic (03/10/18 Lunch) Ed Discharge Order (03/10/18 13:42) Labs Laboratory Tests Test 03/09/18 16:30 03/09/18 17:00 03/09/18 21:55 White Blood Count 3.2 TH/MM3 Red Blood Count 4.27 MIL/MM3 Hemoglobin 14.1 GM/DL Hematocrit 41.5 % Mean Corpuscular Volume 97.1 FL Mean Corpuscular Hemoglobin 33.0 PG Mean Corpuscular Hemoglobin Concent 34.0 % Red Cell Distribution Width 13.1 % Platelet Count 225 TH/MM3 Mean Platelet Volume 7.9 FL Neutrophils (%) (Auto) 41.8 % Lymphocytes (%) (Auto) 49.7 % Monocytes (%) (Auto) 6.1 % Eosinophils (%) (Auto) 1.8 % Basophils (%) (Auto) 0.6 % Neutrophils # (Auto) 1.4 TH/MM3 Lymphocytes # (Auto) 1.6 TH/MM3 Monocytes # (Auto) 0.2 TH/MM3 Eosinophils # (Auto) 0.1 TH/MM3 Basophils # (Auto) 0.0 TH/MM3 CBC Comment DIFF FINAL Differential Comment Blood Urea Nitrogen 10 MG/DL Creatinine 0.68 MG/DL Random Glucose 89 MG/DL Total Protein 8.1 GM/DL 6.9 GM/DL Albumin 4.3 GM/DL 3.7 GM/DL Calcium Level 8.3 MG/DL Alkaline Phosphatase 59 U/L 52 U/L Aspartate Amino Transf (AST/SGOT) 93 U/L 71 U/L Alanine Aminotransferase (ALT/SGPT) 52 U/L 44 U/L Total Bilirubin 0.4 MG/DL 0.3 MG/DL Sodium Level 145 MEQ/L Potassium Level 3.8 MEQ/L Chloride Level 111 MEQ/L Carbon Dioxide Level 26.8 MEQ/L Anion Gap 7 MEQ/L Estimat Glomerular Filtration Rate 96 ML/MIN Thyroid Stimulating Hormone 3rd Gen 0.360 uIU/ML Salicylates Level LESS THAN 1.7 MG/DL Acetaminophen Level LESS THAN 2.0 MCG/ML Ethyl Alcohol Level 291 MG/DL Urine Opiates Screen NEG Urine Barbiturates Screen NEG Urine Amphetamines Screen NEG Urine Benzodiazepines Screen NEG Urine Cocaine Screen NEG Urine Cannabinoids Screen POS Direct Bilirubin 0.1 MG/DL Indirect Bilirubin 0.2 MG/DL [facility] Medical Record Reviewed: Yes Supervised Visit with MARISEL: No Narrative Course For full history and physical examination please see previous providers note. Patient was brought to emergency department under Pritchard act for psychiatric evaluation. She was seen and evaluated, medically cleared. She was evaluated by psychiatry, Pritchard act was lifted and patient was deemed safe to be discharged home. Diagnosis Primary Impression: Adjustment disorder with depressed mood Additional Impressions: Suicide gesture Adjustment disorder Qualified Codes: F43.23 - Adjustment disorder with mixed anxiety and depressed mood Intentional overdose of drug in tablet form Referrals: [facility] day Patient Instructions: General Instructions Additional Instruction: Follow-up with [facility] Follow-up with your primary doctor Med/Other Pt SpecificInfo: Prescription(s) given Scripts Trazodone (Trazodone) 100 Mg Tablet 100 MG PO HS for Control Depression, #30 TAB 0 Refills Prov: MoraBarb lopez T[employer] STITCHER 03/10/18 Sertraline (Zoloft) 50 Mg Tab 50 MG PO DAILY for Anxiety for 30 Days, #30 TAB 0 Refills Prov: Barb Mora 03/10/18 Disposition: 01 DISCHARGE HOME Condition: Stable Cheryle Gupta Mar 10, 2018 13:49
--- NOTE | 2018-03-10 15:25 | EKG ---
Date Performed: 03/09/2018 Time Performed: 17:40:12 PTAGE: 37 years EKG: Sinus rhythm POSSIBLE RIGHT VENTRICULAR CONDUCTION DELAY Since the previous tracing, no significant change noted BORDERLINE ECG PREVIOUS TRACING : 01/16/18 @ 1320 DOCTOR: Torri Brown Interpretating Date/Time 03/10/2018 15:17:58
== END 2018-03-10 13:51 | disposition home or self-care (01) ==
LOC: NEDAMB 16:06 → NEPJ 03-10 13:51
DX: F43.23 Adjustment disorder with mixed anxiety and depressed mood (principal); T43.212A Poisoning by selective serotonin and norepinephrine reuptake inhibitors, intentional self-harm, initial encounter; G47.00 Insomnia, unspecified; F10.129 Alcohol abuse with intoxication, unspecified; R94.31 Abnormal electrocardiogram [ECG] [EKG]
CPT/HCPCS: 80053; 80307; 84443; 85025; 93005; 96360; 96361; 99284; J7030; 80076